=== PATIENT | male | born 1980 | race Caucasian/White ===

== ENCOUNTER 2018-01-20 15:57 | Emergency (ER) | payer OTHER ==
[2018-01-20] MEDS ORDERED: DEXAMETHASONE 10 MG/ML VIAL PO STA (16:33)
[2018-01-20] MEDS ORDERED: HYDROmorphone 1 MG/ML CARPUJECT IM STA (16:33)
[2018-01-20] MEDS ORDERED: ONDANSETRON ODT 4 MG TABLET TL STA (16:33)
--- NOTE | 2018-01-20 16:37 | ED Physician Documentation ---
PD HPI BACK PAIN - Stated complaint Stated Complaint: LOWER BK PX - Chief complaint Chief Complaint: Back Pain - History obtained from History obtained from: Patient, Friend - History of Present Illness Timing - onset: How many weeks ago (1) Timing - duration: Weeks (1) Timing - details: Gradual onset, Still present, Waxing and waning Location: Lower, Right Quality: Pain, Spasm, Sharp, Similar to prior episodes Associated symptoms: No: Fever, Weakness, Numbness, Incontinent of urine, Unable to urinate, Hematuria Improves with: Rest, Position, Meds Worsened by: Movement Contributing factors: Lifting, Twisting Similar symptoms before: Diagnosis (disc rupture) Recently seen: Not recently seen - Additional information Additional information: 37-year-old male medically discharged from the [employer] for lumbar disc disease has been living with a friend here on [facility] and he has been helping a friend remodel his home. He does state that he is up and down on a ladder, he carries a ladder and he does not note any specific injury that he has had. Symptoms started about a week ago. Today for about the past 6 hours his pain has escalated and he is not able to move around without help. Review of Systems Constitutional: denies: Fever Eyes: denies: Decreased vision Ears: denies: Ear pain Nose: denies: Congestion Throat: denies: Sore throat Respiratory: denies: Cough GI: denies: Abdominal Pain, Nausea, Vomiting : denies: Dysuria, Frequency Skin: denies: Rash Musculoskeletal: reports: Back pain. denies: Neck pain Neurologic: denies: Generalized weakness, Focal weakness, Numbness PD PAST MEDICAL HISTORY - Past Medical History Past Medical History: Yes HEENT: Chronic sinusitis Musculoskeletal: Chronic back pain Other Past Medical History: Childhood Luekemia - Past Surgical History Past Surgical History: Yes - Present Medications Home Medications: Ambulatory Orders Medication Instructions Recorded Confirmed Cyclobenzaprine [Flexeril] 10 mg PO TID PRN #20 tablet 01/20/18 HYDROcod/ACETAM 5/325 [[place] 5/325] 1 - 2 ea PO Q6H PRN #15 tablet 01/20/18 Methocarbamol 01/20/18 - Allergies Allergies/Adverse Reactions: Allergies Allergy/AdvReac Type Severity Reaction Status Date / Time Penicillins Allergy Unknown Verified 01/20/18 16:02 - Social History Does the pt smoke?: Yes Smoking Status: Current every day smoker Does the pt drink ETOH?: No Does the pt have substance abuse?: Yes Substance Use and Type: Marijuana - Immunizations Immunizations are current?: Yes PD ED PE NORMAL - Vitals Vital signs reviewed: Yes (normal ) - General General: Alert and oriented X 3, Well developed/nourished, Other (moves slowly with spams noted and appears to be in pain ) - HEENT HEENT: Atraumatic, PERRL - Neck Neck: Supple, no meningeal sign, No bony TTP - Respiratory Respiratory: No respiratory distress - Back Back: No CVA TTP, Other (There is severe lower lumbar pain and paraspinous muscle spasm. The lower lumbar spine is painful to palpate. 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, No sensory deficit, Normal speech, Other (There is mild weakness to the right great toe dorsiflexion ) Eye Opening: Spontaneous Motor: Obeys Commands Verbal: Oriented GCS Score: 15 - Psych Psych: Normal mood, Normal affect Results - Vitals Vitals: Vital Signs - 24 hr 01/20/18 15:59 Temperature 36.2 C L Heart Rate 78 Respiratory 20 Rate Blood Pressure 109/77 O2 Saturation 96 Oxygen O2 Source Room air PD MEDICAL DECISION MAKING - ED course Complexity details: reviewed results, re-evaluated patient, considered differential, d/w patient, d/w family ED course: 37-year-old male with a history of lumbar disc disease has exacerbation of his pain appears very stiff. He is administered dexamethasone Dilaudid and Zofran. - Sepsis Event Vital Signs: Vital Signs - 24 hr 01/20/18 15:59 Temperature 36.2 C L Heart Rate 78 Respiratory 20 Rate Blood Pressure 109/77 O2 Saturation 96 Oxygen O2 Source Room air Departure - Departure Disposition: 01 Home, Self Care Clinical Impression: Sciatica Qualifiers: Laterality: right Qualified Code(s): M54.31 - Sciatica, right side Condition: Stable Instructions: ED Sciatica Follow-Up: ESVIN Castro [Provider Group] Prescriptions: Cyclobenzaprine [Flexeril] 10 mg PO TID PRN #20 tablet PRN Reason: Spasms HYDROcod/ACETAM 5/325 [[place] 5/325] 1 - 2 ea PO Q6H PRN #15 tablet PRN Reason: Pain
[2018-01-20] MEDS ORDERED: CHERRY SYRUP 10 ML UDC PO ONE (16:38)
[2018-01-20 17:13] VITALS: BP 126/78
== END 2018-01-20 17:24 | disposition home or self-care (01) ==
LOC: ED 15:57
DX: M54.31 Sciatica, right side (principal); M51.86 Other intervertebral disc disorders, lumbar region; F17.200 Nicotine dependence, unspecified, uncomplicated
CPT/HCPCS: 96372; 99283; A9270; J1170; Q0162

== ENCOUNTER 2018-04-27 10:40 | Emergency (ER) | payer OTHER ==
[2018-04-27 10:58] VITALS: BP 147/88
--- NOTE | 2018-04-27 12:44 | ED Physician Documentation ---
PD HPI UPPER EXT INJURY - Stated complaint Stated Complaint: L ARM INJ - Chief complaint Chief Complaint: Ext Problem - History obtained from History obtained from: Patient - History of Present Illness Location: Left, Forearm Where injury occurred: Home Timing - onset: How many days ago (3) Timing - details: Still present Worsened by: Moving, Palpating Similar symptoms before: Has not had sx before - Additonal information Additional information: The patient is a 38-year-old male who presents with pain in his left forearm. The pain started 3 days ago when he injured it while working on his deck at home. He denies any other injuries. He presents now because of continued pain 3 days after the injury. He is right-hand dominant. Review of Systems Constitutional: denies: Fever Musculoskeletal: reports: Extremity pain (Left forearm.). denies: Neck pain, Back pain Neurologic: denies: Focal weakness, Numbness PD PAST MEDICAL HISTORY - Past Medical History Cardiovascular: None Endocrine/Autoimmune: None HEENT: Chronic sinusitis Musculoskeletal: Chronic back pain - Past Surgical History Past Surgical History: Yes - Present Medications Home Medications: Ambulatory Orders Medication Instructions Recorded Confirmed No Known Home Medications 04/27/18 04/27/18 - Allergies Allergies/Adverse Reactions: Allergies Allergy/AdvReac Type Severity Reaction Status Date / Time bee venom protein (honey bee) Allergy Unknown Verified 04/27/18 10:49 Penicillins Allergy Unknown Verified 01/20/18 16:02 - Social History Does the pt smoke?: Yes Smoking Status: Current every day smoker Does the pt drink ETOH?: No Does the pt have substance abuse?: Yes - Immunizations Immunizations are current?: Yes PD ED PE NORMAL - Vitals Vital signs reviewed: Yes (Initially hypertensive.) - General General: Alert and oriented X 3, Well developed/nourished - HEENT HEENT: Atraumatic - Neck Neck: No bony TTP - Cardiac Cardiac: RRR - Respiratory Respiratory: No respiratory distress, Clear bilaterally - Derm Derm: No rash - Extremities Extremities: Other (There is tenderness to palpation over the radial aspect of the left forearm. There is mild soft tissue swelling, without ecchymosis or break in the integument. Distal neurovascular is intact.) - Neuro Neuro: Alert and oriented X 3, No motor deficit, No sensory deficit Results - Vitals Vitals: Oxygen O2 Source Room air - Rads (name of study) Left forearm Radiology: Prelim report reviewed, EMP read contemporaneously, See rad report PD MEDICAL DECISION MAKING - ED course Complexity details: reviewed results, re-evaluated patient, considered differential, d/w patient ED course: The patient's presentation is most consistent with contusion to the left forearm. There is no evidence of fracture or dislocation on radiographic imaging. I discussed with him the expected course of injury, symptomatic treatment and outpatient follow-up, as well as potentially worrisome signs or symptoms that should prompt reevaluation in the emergency department. Departure - Departure Disposition: 01 Home, Self Care Clinical Impression: Contusion of left forearm Qualifiers: Encounter type: initial encounter Qualified Code(s): S50.12XA - Contusion of left forearm, initial encounter Condition: Stable Instructions: ED Contusion Upper Ext Follow-Up: ESVIN Castro [Provider Group] Comments: Apply ice pack to left forearm intermittently for the next 3 days. You can use ibuprofen, up to 800 mg 3 times daily for its anti-inflammatory effect. Let pain be your guide to activity level. Follow-up with your primary physician within 2 weeks. Call to schedule an appointment. Return to the emergency department if you develop increasing pain or swelling of the arm, or otherwise worsening symptoms. Discharge Date/Time: 04/27/18 12:57
--- NOTE | 2018-04-27 13:08 | XRAY Report ---
Reason: Limited ROM 2 pain Procedure Date: 04/27/2018 Accession Number: [id number] / [id number] Procedure: XR - Forearm LT CPT Code: FULL RESULT: EXAM: LEFT FOREARM RADIOGRAPHY EXAM DATE: 04/27/2018 11:04 AM. CLINICAL HISTORY: Limited ROM , pain. COMPARISON: None. TECHNIQUE: 2 views. FINDINGS: Bones: Normal. No fractures or bone lesions. Joints: Normal. No effusions or subluxations in the visualized wrist or elbow joints. Soft Tissues: Normal. No soft tissue swelling. IMPRESSION: Normal forearm radiography. [facility]
== END 2018-04-27 12:57 | disposition home or self-care (01) ==
LOC: ED 10:40
DX: S50.12XA Contusion of left forearm, initial encounter (principal); X50.0XXA Overexertion from strenuous movement or load, initial encounter; Y93.H3 Activity, building and construction; F17.200 Nicotine dependence, unspecified, uncomplicated; Y92.009 Unspecified place in unspecified non-institutional (private) residence as the place of occurrence of the external cause
CPT/HCPCS: 99282

== ENCOUNTER 2018-08-28 13:29 | Emergency (ER) | payer OTHER ==
--- NOTE | 2018-08-28 16:27 | ED Physician Documentation ---
History of Present Illness - Stated complaint Stated Complaint: HEAD LAC - Chief complaint Chief Complaint: Trauma Hd/Nk - History obtained from History obtained from: Patient - History of Present Illness Pain level max: 5 - Additonal information Additional information: Patient is a previously healthy 38-year-old male who at approximately noon today accidentally struck himself with a [employer] pounder while Working outside at his home. Patient reports that he did fall to the ground, but did not lose consciousness. Patient also denies vision loss, epistaxis, oral trauma. Patient denies neck pain, back pain, chest or abdominal pain, as well as any extremity pain. Patient does complain of feeling slightly dazed with mild headache, as well as laceration to top of head that has stopped bleeding. Tetanus current. Patient denies any particular worsening or improving factors to his symptoms. Review of Systems Eyes: denies: Loss of vision Ears: denies: Loss of hearing, Drainage/discharge Nose: denies: Epistaxis Throat: denies: Dental pain / toothache Skin: reports: Laceration (s) PD PAST MEDICAL HISTORY - Past Medical History Cardiovascular: None Endocrine/Autoimmune: None HEENT: Chronic sinusitis Musculoskeletal: Chronic back pain Other Past Medical History: back pain-chronic pain. - Past Surgical History Past Surgical History: Yes - Present Medications Home Medications: Ambulatory Orders Medication Instructions Recorded Confirmed No Known Home Medications 04/27/18 04/27/18 - Allergies Allergies/Adverse Reactions: Allergies Allergy/AdvReac Type Severity Reaction Status Date / Time bee venom protein (honey bee) Allergy Unknown Verified 08/28/18 14:06 Penicillins Allergy Unknown Verified 08/28/18 14:06 - Social History Does the pt smoke?: No Smoking Status: Former smoker Does the pt drink ETOH?: No Does the pt have substance abuse?: Yes - Immunizations Immunizations are current?: Yes - POLST Patient has POLST: No PD ED PE NORMAL - General General: Alert and oriented X 3, No acute distress, Well developed/nourished - HEENT HEENT: PERRL, EOMI, Moist mucous membranes, Pharynx benign, Dentition benign (Approximately 0.75-8cm laceration to top of head with clotted blood present, no active drainage or bleeding otherwise, no surrounding signs of infection. No other contusions noted. Remainder of head and face exam atraumatic with no facial bone tenderness or instability. Gross visual acuity intact.) - Cardiac Cardiac: RRR, No murmur - Respiratory Respiratory: No respiratory distress, Clear bilaterally - Abdomen Abdomen: Normal bowel sounds, Soft, Non tender, Non distended - Back Back: No spinal TTP - Derm Derm: Normal color, Warm and dry, No rash - Extremities Extremities: No deformity - Neuro Neuro: Alert and oriented X 3, No motor deficit, No sensory deficit - Psych Psych: Normal mood, Normal affect Results - Vitals Vitals: Vital Signs - 24 hr 08/28/18 08/28/18 14:01 14:06 Temperature 36.6 C Heart Rate 94 76 Respiratory 16 16 Rate Blood Pressure 117/78 120/67 O2 Saturation 97 100 Oxygen O2 Source Room air Procedures - Laceration (location) Scalp Length in cm: 0.8 Wound type: Linear Neurovascular status: Sensory intact, Motor intact, Vascular intact Anesthesia: LET Wound Preparation: Irrigated copiously NS Skin layer closure: Matthews (3) PD MEDICAL DECISION MAKING - ED course Complexity details: re-evaluated patient, considered differential, d/w patient ED course: Most concerning for uncomplicated laceration, head injury, concussion given mechanism of injury, complaints, and physical exam findings. I have low suspicion for skull or facial fracture, intracranial bleed, spinal or spinal cord injury, as well as chest, abdominal, lower extremity trauma, but considered. Tetanus Current. Patient's wound appropriate clean and closed in ED. Discussed likely concussive syndrome and supportive cares and precautions for such, as well as wound care, staple removal timing, appropriate follow-up and return precautions. Patient voiced understanding and is comfortable with discharge plan. Departure - Departure Disposition: 01 Home, Self Care Clinical Impression: Concussion Qualifiers: Encounter type: initial encounter Loss of consciousness presence/duration: without LOC Qualified Code(s): S06.0X0A - Concussion without loss of consciousness, initial encounter Scalp laceration Qualifiers: Encounter type: initial encounter Qualified Code(s): S01.01XA - Laceration without foreign body of scalp, initial encounter Condition: Good Instructions: ED Head Injury Closed, ED Concussion Follow-Up: your,doctor [Other] Comments: Please keep wound clean and dry, using running water and soap only. Be gentle when you shower shampoo. Do not need to apply anything topically. Please return to ED, urgent care, your physician for removal of karen in 10 days. Also be aware of concussion precautions provided and discussed. Return to ED sooner if experience any concerns otherwise follow-up with primary care physician next 2-3 days for reevaluation of concussion and approval to return to full activities.
[2018-08-28] MEDS ORDERED: LIDOCAINE-EPINEPH-TETRACAINE 3 ML SYRINGE TOP STA (17:25)
[2018-08-28 17:42] VITALS: BP 120/67
== END 2018-08-28 17:37 | disposition home or self-care (01) ==
LOC: ED 13:29
DX: S06.0X0A Concussion without loss of consciousness, initial encounter (principal); S01.01XA Laceration without foreign body of scalp, initial encounter; W22.8XXA Striking against or struck by other objects, initial encounter; Y92.007 Garden or yard of unspecified non-institutional (private) residence as the place of occurrence of the external cause; Z87.891 Personal history of nicotine dependence
CPT/HCPCS: 12001; 99283

== ENCOUNTER 2018-09-09 09:36 | Emergency (ER) | payer OTHER ==
--- NOTE | 2018-09-09 09:45 | ED Physician Documentation ---
PD HPI WOUND RECHECK - Stated complaint Stated Complaint: STAPLE REMOVAL - Histroy obtained from History obtained from: Patient - History of Present Illness Location: Scalp Timing - onset: How many weeks ago (1) Associated symptoms: No: Fever, Redness, Swelling, Drainage Recently seen: Emergency Dept (with karen in frontal scalp a week ago) Review of Systems Constitutional: denies: Fever GI: denies: Nausea, Vomiting PD PAST MEDICAL HISTORY - Past Medical History Cardiovascular: None Endocrine/Autoimmune: None HEENT: Chronic sinusitis Musculoskeletal: Chronic back pain - Past Surgical History Past Surgical History: Yes - Present Medications Home Medications: Ambulatory Orders Medication Instructions Recorded Confirmed No Known Home Medications 04/27/18 04/27/18 - Allergies Allergies/Adverse Reactions: Allergies Allergy/AdvReac Type Severity Reaction Status Date / Time bee venom protein (honey bee) Allergy Unknown Verified 09/09/18 09:50 Penicillins Allergy Unknown Verified 09/09/18 09:50 - Social History Does the pt smoke?: No Smoking Status: Former smoker Does the pt drink ETOH?: No Does the pt have substance abuse?: Yes - Immunizations Immunizations are current?: Yes - POLST Patient has POLST: No PD ED PE NORMAL - Vitals Vital signs reviewed: Yes - General General: Alert and oriented X 3, No acute distress, Well developed/nourished - HEENT HEENT: Other (frontal area with healing wound with some small scab. No signs of infection. [address] ) Results - Vitals Vitals: Vital Signs - 24 hr 09/09/18 09:46 Temperature 35.9 C L Heart Rate 68 Respiratory 16 Rate Blood Pressure 129/78 O2 Saturation 97 Oxygen O2 Source Room air Departure - Departure Disposition: 01 Home, Self Care Clinical Impression: Removal of staple Condition: Stable Record reviewed to determine appropriate education?: Yes Instructions: ED Stap Removal No Complication Comments: Continue cleaning as you have been. The wound looks okay at this time with a little bit of a hard scab. Use some ointment once or twice daily to soften it up and that will speed the healing. Discharge Date/Time: 09/09/18 10:57
[2018-09-09 09:49] VITALS: BP 129/78
== END 2018-09-09 10:57 | disposition home or self-care (01) ==
LOC: ED 09:36
DX: S01.01XD Laceration without foreign body of scalp, subsequent encounter (principal); X58.XXXD Exposure to other specified factors, subsequent encounter; Z48.02 Encounter for removal of sutures; Z87.891 Personal history of nicotine dependence
CPT/HCPCS: 99282

== ENCOUNTER 2020-04-11 20:19 | Emergency (ER) | payer OTHER ==
[2020-04-11 21:06] LABS: BASOPHILS # (AUTO) 0.1 10^3/uL (0.0-0.1); BASOPHILS % (AUTO) 0.6 %; EOSINOPHILS # (AUTO) 0.3 10^3/uL (0.0-0.7); EOSINOPHILS % (AUTO) 2.3 %; HGB - HEMOGLOBIN 14.5 g/dL (14.0-18.0); LYMPHOCYTES % (AUTO) 8.5 %; MEAN CORPUSCULAR HEMOGLOBIN 31.9 pg (27.0-31.0); MEAN CORPUSCULAR HGB CONC 36.5 g/dL (32.0-36.0); MEAN CORPUSCULAR VOLUME 87.4 fL (80.0-94.0); MEAN PLATELET VOLUME 8.8 fL (7.4-11.4); MONOCYTES # (AUTO) 1.1 10^3/uL (0.0-1.0); MONOCYTES % (AUTO) 9.7 %; NEUTROPHILS # (AUTO) 8.8 10^3/uL (1.5-6.6); NEUTROPHILS % (AUTO) 78.5 %; PLT - PLATELET COUNT 196 10^3/uL (130-450); RED BLOOD COUNT 4.54 10^6/uL (4.70-6.10); RED CELL DISTRIBUTION WIDTH 12.1 % (12.0-15.0); WHITE BLOOD COUNT 11.2 x10^3/uL (4.8-10.8)
[2020-04-11 21:18] LABS: ALBUMIN 3.8 g/dL (3.2-5.5); ALBUMIN/GLOBULIN RATIO 1.1 (1.0-2.2); BILIRUBIN,TOTAL 0.7 mg/dL (0.2-1.0); CALCIUM 8.8 mg/dL (8.5-10.3); CREATININE 0.9 mg/dL (0.6-1.2); TOTAL PROTEIN 7.4 g/dL (6.7-8.2)
--- NOTE | 2020-04-11 21:26 | XRAY Report ---
PROCEDURE: Chest 1 View X-Ray INDICATIONS: cough fever TECHNIQUE: One view of the chest was acquired. COMPARISON: None FINDINGS: Surgical changes and devices: None. Lungs and pleura: No pleural effusions or pneumothorax. Lungs are clear. Mediastinum: Mediastinal contours appear normal. Heart size is normal. Bones and chest wall: No suspicious bony lesions. Overlying soft tissues appear unremarkable. IMPRESSION: No acute cardiopulmonary disease process. Reviewed by: Sully Blas MD, PhD on 04/11/2020 9:25 PM PDT Approved by: Sully Blas MD, PhD on 04/11/2020 9:25 PM PDT Station ID: [id number]
[2020-04-11] MEDS ORDERED: ACETAMINOPHEN 325 MG TABLET PO STA (21:32)
--- NOTE | 2020-04-11 21:50 | ED Physician Documentation ---
History of Present Illness - Stated complaint Stated Complaint: FEVER,NAUSEA,MUSCLE SPASMS - Chief complaint Chief Complaint: Fever - History obtained from History obtained from: Patient - History of Present Illness Timing: Last night Pain level now: 9 Improved by: nothing Worsened by: worse when fever spikes with rigors - Treatment prior to arrival Treatment prior to arrival: has been taking tylenol , last dose approximately 3 PM - Additonal information Additional information: c/o episodic generalized rigor chills which he says are like "muscle spasms" all over his body, intermittent and painful. Tmax at home 100.7 (higher in ED triage). Mild, nonproductive cough. 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 denies: Dyspnea GI: reports: Reviewed and negative : denies: Dysuria, Frequency Skin: denies: Rash Musculoskeletal: reports: Reviewed and negative (pain is not specific to an area or extremity, although he has generalized aches and pains when he has the rigor chills) Neurologic: denies: Focal weakness, Numbness, Headache PD PAST MEDICAL HISTORY - Past Medical History Cardiovascular: None Respiratory: None Neuro: None Endocrine/Autoimmune: None GI: None : None HEENT: Chronic sinusitis Psych: Depression, Anxiety Musculoskeletal: Chronic back pain Derm: None - Past Surgical History Past Surgical History: Yes General: Other Ortho: Arthroscopic surgery - Present Medications Home Medications: Ambulatory Orders Medication Instructions Recorded Confirmed methocarbamoL [Methocarbamol] 500 BID 04/11/20 - Allergies Allergies/Adverse Reactions: Allergies Allergy/AdvReac Type Severity Reaction Status Date / Time bee venom protein (honey bee) Allergy Unknown Verified 09/09/18 09:50 Penicillins Allergy Unknown Verified 09/09/18 09:50 - Social History Does the pt smoke?: No Smoking Status: Never smoker Does the pt drink ETOH?: No Does the pt have substance abuse?: Yes Substance Use and Type: Marijuana - Immunizations Immunizations are current?: Yes - POLST Patient has POLST: No PD ED PE NORMAL - Vitals Vital signs reviewed: Yes - General General: Alert and oriented X 3, No acute distress, Well developed/nourished - HEENT HEENT: Moist mucous membranes - Neck Neck: Supple, no meningeal sign - Cardiac Cardiac: No murmur - Respiratory Respiratory: No respiratory distress, Clear bilaterally - Abdomen Abdomen: Soft, Non distended - Back Back: No CVA TTP, No spinal TTP - Derm Derm: No rash - Neuro Neuro: Alert and oriented X 3 Eye Opening: Spontaneous Motor: Obeys Commands Verbal: Oriented GCS Score: 15 PD ED PE EXPANDED - Cardiac Cardiac: Tachy, Regular Rhythm - Abdomen Abdomen: Tender to palpation, LLQ. No: Rebound, Guarding Results - Vitals Vitals: Vital Signs - 24 hr 04/11/20 04/11/20 04/11/20 20:20 20:38 21:08 Temperature 39.5 C H 39.5 C H 38.6 C H Heart Rate 104 H 98 88 Respiratory 20 24 22 Rate Blood Pressure 127/85 H 112/87 H 114/76 O2 Saturation 100 98 97 04/11/20 04/11/20 04/11/20 21:30 22:27 22:30 Temperature 38.6 C H 37.7 C H 37.7 C H Heart Rate 79 79 83 Respiratory 20 20 20 Rate Blood Pressure 121/77 127/75 127/75 O2 Saturation 96 97 97 04/11/20 04/11/20 04/12/20 23:00 23:30 00:00 Temperature 37.7 C H 37.4 C Heart Rate 76 75 74 Respiratory 20 18 18 Rate Blood Pressure 118/71 124/65 125/72 O2 Saturation 98 98 97 04/12/20 04/12/20 00:30 00:40 Temperature 37.7 C H 37.7 C H Heart Rate 74 74 Respiratory 18 18 Rate Blood Pressure 125/79 125/79 O2 Saturation 98 98 Oxygen O2 Source Room air Oxygen Flow Rate 0 - Labs Labs: Laboratory Tests 04/11/20 04/11/20 04/11/20 20:55 20:57 20:57 WBC 11.2 H RBC 4.54 L Hgb 14.5 Hct 39.7 L MCV 87.4 MCH 31.9 H MCHC 36.5 H RDW 12.1 Plt Count 196 MPV 8.8 Neut # (Auto) 8.8 H Lymph # (Auto) 1.0 L [place] # (Auto) 1.1 H Eos # (Auto) 0.3 Baso # (Auto) 0.1 Absolute Nucleated RBC 0.00 Nucleated RBC % 0.0 Sodium 139 Potassium 3.5 Chloride 106 Carbon Dioxide 23 Anion Gap 10.0 BUN 18 Creatinine 0.9 Estimated GFR (MDRD) 93 Glucose 108 H Lactic Acid Calcium 8.8 Total Bilirubin 0.7 AST 18 ALT 24 Alkaline Phosphatase 85 Total Protein 7.4 Albumin 3.8 Globulin 3.6 Albumin/Globulin Ratio 1.1 Urine Color Urine Clarity Urine pH Ur Specific [place] Urine Protein Urine Glucose (UA) Urine Ketones Urine Occult Blood Urine Nitrite Urine Bilirubin Urine Urobilinogen Ur Leukocyte Esterase Ur Microscopic Review Urine Culture Comments Nasal Adenovirus (PCR) NOT DETECTED Nasal B. parapertussis DNA (PCR) NOT DETECTED Nasal Coronavir 229E PCR NOT DETECTED Nasal Coronavir HKU1 PCR NOT DETECTED Nasal Coronavir NL63 PCR NOT DETECTED Nasal Coronavir OC43 PCR NOT DETECTED Nasal Enterovir/Rhinovir PCR NOT DETECTED Nasal Influenza B PCR NOT DETECTED Nasal Parainfluen 1 PCR NOT DETECTED Nasal Parainfluen 2 PCR NOT DETECTED Nasal Parainfluen 3 PCR NOT DETECTED Nasal Parainfluen 4 PCR NOT DETECTED Nasal RSV (PCR) NOT DETECTED Nasal B.pertussis DNA PCR NOT DETECTED Nasal C.pneumoniae (PCR) NOT DETECTED [place] Human Metapneumo PCR NOT DETECTED Nasal M.pneumoniae (PCR) NOT DETECTED Nasal SARS-CoV-2 (PCR) NOT DETECTED 04/11/20 04/11/20 20:57 22:30 WBC RBC Hgb Hct MCV MCH MCHC RDW Plt Count MPV Neut # (Auto) Lymph # (Auto) [place] # (Auto) Eos # (Auto) Baso # (Auto) Absolute Nucleated RBC Nucleated RBC % Sodium Potassium Chloride Carbon Dioxide Anion Gap BUN Creatinine Estimated GFR (MDRD) Glucose Lactic Acid 1.3 Calcium Total Bilirubin AST ALT Alkaline Phosphatase Total Protein Albumin Globulin Albumin/Globulin Ratio Urine Color YELLOW Urine Clarity CLEAR Urine pH 5.5 Ur Specific [place] 1.025 Urine Protein TRACE Urine Glucose (UA) NEGATIVE Urine Ketones TRACE Urine Occult Blood NEGATIVE Urine Nitrite NEGATIVE Urine Bilirubin NEGATIVE Urine Urobilinogen 2 H Ur Leukocyte Esterase NEGATIVE Ur Microscopic Review NOT INDICATED Urine Culture Comments NOT INDICATED Nasal Adenovirus (PCR) Nasal B. parapertussis DNA (PCR) Nasal Coronavir 229E PCR Nasal Coronavir HKU1 PCR Nasal Coronavir NL63 PCR Nasal Coronavir OC43 PCR Nasal Enterovir/Rhinovir PCR Nasal Influenza B PCR Nasal Parainfluen 1 PCR Nasal Parainfluen 2 PCR Nasal Parainfluen 3 PCR Nasal Parainfluen 4 PCR Nasal RSV (PCR) Nasal B.pertussis DNA PCR Nasal C.pneumoniae (PCR) [place] Human Metapneumo PCR Nasal M.pneumoniae (PCR) Nasal SARS-CoV-2 (PCR) - Rads (name of study) CT A/P w/ IV contrast Radiology: Prelim report reviewed, See rad report PD MEDICAL DECISION MAKING - ED course Complexity details: reviewed results, re-evaluated patient, considered differential, d/w patient ED course: On reevaluation after tests resulted and IV fluids, PO tyleno, patient is in NAD , reports feeling better. Unremarkable w/u despite high fevers. Incidental CT findings d/w patient and he was advised of possibility of false negative results (such as influenza, covid). advised to return if worse, f/u with PMD next available appointment Departure - Departure Disposition: 01 Home, Self Care Clinical Impression: Fever Condition: Good Instructions: ED Fever Unconf Cause Comments: As we discussed, although there are no findings on your CT scan that are emergent or related to the fever, you have a large gallstone, a small right renal cyst, and an unusual amount of calcification in your prostate. These are incidental findings and can be discussed with your doctor regarding whether further testing is needed. Discharge Date/Time: 04/12/20 00:40
[2020-04-11 22:08] LABS: C. PNEUMONIAE- RESP PCR PANEL NOT DETECTED
[2020-04-11] MEDS ORDERED: SODIUM CHLORIDE 0.9% 1,000 ML IV STA (22:17)
[2020-04-11 22:38] LABS: BILIRUBIN,URINE NEGATIVE (NEGATIVE); GLUCOSE, URINE (UA) NEGATIVE (NEGATIVE); KETONES,URINE (UA) TRACE mg/dL (NEGATIVE); LEUKOCYTE ESTERASE, URINE NEGATIVE (NEGATIVE); NITRITE,URINE NEGATIVE (NEGATIVE); OCCULT BLOOD,URINE NEGATIVE (NEGATIVE); PH,URINE 5.5 PH (5.0-7.5); PROTEIN,URINE TRACE mg/dL (NEGATIVE); UROBILINOGEN,URINE 2 E.U./dL (NORMAL)
[2020-04-11 22:41] LABS: CLARITY,URINE CLEAR (CLEAR)
[2020-04-11] MEDS ORDERED: IOVERSOL 320 100 ML VIAL IVP ONE ×2 (23:02→23:36)
[2020-04-12 00:46] VITALS: BP 125/79
--- NOTE | 2020-04-12 08:31 | CT Report ---
PROCEDURE: Abdomen/Pelvis W INDICATIONS: LLQ tenderness, fever CONTRAST: IV CONTRAST: Optiray 320 ml: 100 PO CONTRAST: *NO PO CONTRAST TECHNIQUE: After the administration of nonionic IV contrast, 5 mm thick sections acquired from the diaphragms to the symphysis. 5 mm thick coronal and sagittal reformats were acquired. For radiation dose reducti on, the following was used: automated exposure control, adjustment of mA and/or kV according to chasity ent size. COMPARISON: None. FINDINGS: Image quality: Excellent. ABDOMEN: Lung bases: Lung bases are clear. Heart size is normal. Solid organs: Liver and spleen are normal in size and enhancement. Gallbladder demonstrates a galls tone within its lumen that measures up to 2.47 m, as on series 3 image 26. Apparent mild gallbladder wall thickening is seen. Biliary system is non dilated. Pancreas enhances normally. No adrenal nodu les. Kidneys demonstrate normal size and enhancement, without hydronephrosis. Peritoneum and bowel: In this patient with this given history, scrutiny is given to the sigmoid colo n and the left lower quadrant. The sigmoid colon is normal. The left lower quadrant inflammatory cuellar ges are seen. Bowel loops demonstrate normal wall thickness and caliber. No free fluid or air. A normal appendix is incidentally noted. Nodes and vessels: No retroperitoneal or mesenteric adenopathy by size criteria. Aorta and inferior vena cava are normal in size. Miscellaneous: No ventral hernias. PELVIS: Genitourinary: Bladder wall thickness is normal. Miscellaneous: No inguinal hernias or adenopathy. Bones: No suspicious bony lesions. No vertebral body compression fractures. Focal L5-S1 degenerativ e change is seen. Milder degenerative changes are seen elsewhere. IMPRESSION: No cause of left lower quadrant pain can be seen. Gallstone with apparent mild gallbladder wall thickening. If it would be helpful for clinical managem ent decision making, please consider a dedicated right upper quadrant ultrasound. Incidental note is made of: Normal appendix Focal L5-S1 degenerative change Note: No significant discrepancy from the preliminary report. Reviewed by: Marcelo Lorenzo MD on 04/12/2020 7:30 AM [facility] Approved by: Marcelo Lorenzo MD on 04/12/2020 7:30 AM [facility] Station ID: [id number]
== END 2020-04-12 00:40 | disposition home or self-care (01) ==
LOC: ED 20:19
DX: R50.9 Fever, unspecified (principal); Z20.828 Contact with and (suspected) exposure to other viral communicable diseases
CPT/HCPCS: 0202U; 36415; 71045; 74177; 80053; 81003; 83605; 85025; 87040; 96360; 99284; A9270; Q9967; 81001; 87086

== ENCOUNTER 2022-05-21 08:18 | Emergency (ER) | payer OTHER ==
[2022-05-21] MEDS ORDERED: ONDANSETRON 4 MG/2 ML VIAL IVP STA (08:40)
[2022-05-21] MEDS ORDERED: KETOROLAC 30 MG/ML VIAL IVP STA (08:40)
[2022-05-21] MEDS ORDERED: DEXAMETHASONE 10 MG/ML VIAL IVP STA ×2 (08:40→13:21)
[2022-05-21] MEDS ORDERED: HYDROmorphone 1 MG/ML CARPUJECT IVP STA ×3 (08:40→10:36)
[2022-05-21] MEDS ORDERED: SODIUM CHLORIDE 0.9% 1,000 ML IV STA (08:40)
[2022-05-21] MEDS ORDERED: KETAMINE 500 MG/10 ML VIAL IVP STA (09:26)
[2022-05-21] MEDS ORDERED: KETAMINE 40 MG in SODIUM CHLORIDE 0.9% 100ML 100 ML IV STA (09:29)
--- NOTE | 2022-05-21 10:21 | ED Physician Documentation ---
PD HPI BACK PAIN - Stated complaint Stated Complaint: BACK PX - Chief complaint Chief Complaint: Back Pain - History obtained from History obtained from: Patient, Friend - History of Present Illness Timing - onset: How many days ago (2) Timing - duration: Days (2) Timing - details: Gradual onset, Still present Pain level max: >10 Pain level now: >10 Location: Lower, Right Quality: Pain, Spasm, Sharp Associated symptoms: Other. No: Fever, Weakness, Numbness, Incontinent of urine, Unable to urinate, Hematuria, Incontinent of stool Improves with: Rest Worsened by: Movement, Palpation Contributing factors: Other (has hx of sciatica does not recall specific event to trigger exacerbation) Similar symptoms before: Diagnosis (Sciatica) Recently seen: Not recently seen - Additional information Additional information: 42-year-old Enrique Perry has had a problem with his sciatica for years. He recently has begun to have more issues and he has sought care at the [facility] and is looking to get MRI when he gets approval. He has not been on narcotic pain reliever on a pain management program. He has been using ibuprofen or Tylenol for pain management. Today he is unable to ambulate without the use of his cane and he has severe pain radiating down the right leg. He has some weakness to dorsiflexion of the toe. He is writhing in pain and is a poor historian secondary to this distraction. Review of Systems Constitutional: denies: Fever Eyes: denies: Decreased vision Ears: denies: Ear pain Nose: denies: Rhinorrhea / runny nose, Congestion Throat: denies: Sore throat Cardiac: denies: Chest pain / pressure, Palpitations Respiratory: denies: Dyspnea, Cough GI: denies: Abdominal Pain, Nausea, Vomiting, Constipation, Diarrhea : denies: Dysuria, Frequency Skin: denies: Rash Musculoskeletal: reports: Back pain, Extremity pain. denies: Neck pain Neurologic: reports: Focal weakness (right foot dorsiflexion), Numbness. denies: Generalized weakness, Difficulty speaking, Altered mental status, Headache, Head injury, LOC PD PAST MEDICAL HISTORY - Past Medical History Cardiovascular: None Respiratory: None Neuro: None Endocrine/Autoimmune: None GI: None : None HEENT: Chronic sinusitis Psych: Depression, Anxiety Musculoskeletal: Chronic back pain Derm: None - Past Surgical History Past Surgical History: Yes General: Other Ortho: Arthroscopic surgery - Present Medications Home Medications: Ambulatory Orders Medication Instructions Recorded Confirmed methocarbamoL [Methocarbamol] 500 BID 04/11/20 Cyclobenzaprine [Flexeril] 10 mg PO TID PRN #20 tablet 05/21/22 HYDROcod/ACETAM 5/325 [[place] 5/325] 1 - 2 tablet PO Q6H PRN #14 tablet 05/21/22 - Allergies Allergies/Adverse Reactions: Allergies Allergy/AdvReac Type Severity Reaction Status Date / Time bee venom protein (honey bee) Allergy Unknown Verified 09/09/18 09:50 Penicillins Allergy Unknown Verified 09/09/18 09:50 - Social History Does the pt smoke?: No Smoking Status: Never smoker Does the pt drink ETOH?: No Does the pt have substance abuse?: Yes - Immunizations Immunizations are current?: Yes - POLST Patient has POLST: No PD ED PE NORMAL - Vitals Vital signs reviewed: Yes (hypertensive ) - General General: Alert and oriented X 3, Well developed/nourished, Other (crying out in pain appears uncomfortable and tense laying with the right leg extended. ) - HEENT HEENT: Atraumatic, PERRL, EOMI - Neck Neck: Supple, no meningeal sign, No bony TTP - Cardiac Cardiac: RRR, No murmur - Respiratory Respiratory: No respiratory distress - Abdomen Abdomen: Soft, Non tender - Back Back: No CVA TTP, No spinal TTP - Derm Derm: Normal color, Warm and dry, No rash - Extremities Extremities: No deformity, No edema - Neuro Neuro: Alert and oriented X 3, lever miller 2-12 intact, Normal speech Eye Opening: Spontaneous Motor: Obeys Commands Verbal: Oriented GCS Score: 15 - Psych Psych: Other (mood is defeated and the affect is labile ) Results - Vitals Vitals: Vital Signs - 24 hr 05/21/22 05/21/22 05/21/22 08:25 09:00 10:00 Temperature 96.7 C H Heart Rate 62 65 75 Respiratory 20 25 H 22 Rate Blood Pressure 131/80 H 143/96 H 135/79 H O2 Saturation 99 99 98 If not protocol : Oxygen Flow, liters/minute 05/21/22 05/21/22 05/21/22 10:05 10:10 10:15 Temperature Heart Rate 65 70 62 Respiratory 18 12 12 Rate Blood Pressure 142/81 H 134/83 H 133/84 H O2 Saturation 97 97 96 If not protocol : Oxygen Flow, liters/minute 05/21/22 05/21/22 05/21/22 10:25 10:36 10:40 Temperature Heart Rate 60 80 60 Respiratory 10 L 17 12 Rate Blood Pressure 132/83 H 142/76 H 132/84 H O2 Saturation 98 99 98 If not protocol : Oxygen Flow, liters/minute 05/21/22 05/21/22 05/21/22 10:55 11:20 11:25 Temperature Heart Rate 60 50 L 61 Respiratory 17 10 L 17 Rate Blood Pressure 112/53 L 78/42 L 124/75 O2 Saturation 99 97 78 L If not protocol : Oxygen Flow, liters/minute 05/21/22 05/21/22 11:37 13:00 Temperature Heart Rate 63 59 L Respiratory 17 10 L Rate Blood Pressure 126/64 119/63 O2 Saturation 98 99 If not protocol 2 2 : Oxygen Flow, liters/minute Oxygen O2 Source Nasal cannula Oxygen Flow Rate 2 - Rads (name of study) lumbar MRI Radiology: Prelim report reviewed (Impression: 1. L5-S1 disc extrusion, causing neural compression and deviation as described above. Recommend correlation with clinical symptoms to ascertain relevance of this finding.), EMP read indepedently, See rad report PD MEDICAL DECISION MAKING - ED course Complexity details: reviewed old records, reviewed results, re-evaluated patient, considered differential, d/w patient, d/w family ED course: 42-year-old male presents to the emergency department with unrelieved sciatica with severe pain. We had a difficult time controlling the patient's pain. An IV was established in the field and the patient had been administered 150 mcg of fentanyl prior to arrival. This appeared to have little effect on the patient's pain. Here in the emergency department he was initially administered a elliott gram of Dilaudid 10 mg of dexamethasone and 4 mg of Zofran and this again did not seem to help much. He was given a second dose of Dilaudid, a dose Toradol. He had little relief with this and he was given ketamine for pain control with a 35mg bolus and a 40mg infusion over an hour. This had some effect but did not resolve the pain enough to get adequate history. He as given IV morphine with transient improvement and finally a 2mg dose of dialudid and 2mg of ativan. This appeared to help somewhat and the patient was able to tolerate the MRI. The MRI did show disc displacement with impingement on L5/S1 consistent with the symptoms on presentation. Departure - Departure Disposition: 01 Home, Self Care Clinical Impression: Sciatica Qualifiers: Laterality: right Qualified Code(s): M54.31 - Sciatica, right side Instructions: ED Sciatica Follow-Up: Tay Wade MD [Physician No Access] - ARLEN RIVERS DO [Physician No Access] - Prescriptions: Cyclobenzaprine [Flexeril] 10 mg PO TID PRN #20 tablet PRN Reason: Spasms HYDROcod/ACETAM 5/325 [[place] 5/325] 1 - 2 tablet PO Q6H PRN #14 tablet PRN Reason: Pain Comments: Enrique, today it looks like you have severe sciatica and we are happy to hear that there is some improvement in your pain. There is still weakness and numbness in your right foot and this is expected to continue to improve over the next 12 hours. If you have worsening of your symptoms visit in emergency room capable of providing neurosurgical consultation such as [facility] in [place] or [facility]. Under the best of circumstances your symptoms will continue to improve and physical therapy is indicated. [facility] Pain medication and muscle relaxant has been E scrib[facility] to [facility] in [place].
[2022-05-21] MEDS ORDERED: MORPHINE 10 MG/ML VIAL IVP STA (10:51)
[2022-05-21] MEDS ORDERED: LORazepam 2 MG/ML VIAL IVP STA (11:15)
[2022-05-21] MEDS ORDERED: GADOBUTROL 10 MMOL/10 ML VIAL ONE (11:36)
[2022-05-21] MEDS ORDERED: GADOBUTROL 10 MMOL/10 ML VIAL IVP ONE (12:19)
--- NOTE | 2022-05-21 13:04 | MRI Report ---
PROCEDURE: LUMBAR SPINE W/WO INDICATIONS: severe sciatica not responding to treatment CONTRAST: Intravenous gadolinium TECHNIQUE: Noncontrast sagittal T1 spin echo and T2 fast spin echo, sagittal STIR, axial T1 and T2 fast spin ech o through the lumbar spine. In cases with scoliosis, additional coronal T2 fast spin echo may be per formed. After the administration of contrast, sagittal and axial T1 spin echo with fat saturation th rough the lumbar spine. COMPARISON: CT dated 04/11/2020. FINDINGS: Image quality: Excellent. Alignment and curvature: 5 lumbar type vertebral bodies are present by CT there is loss of normal lum bar lordosis. 2 mm of retrolisthesis of L1 on L2 and L2 on L3. Marrow: Marrow is of normal overall signal. No acute vertebral body compression fractures. No susp icious marrow enhancement. Mild reactive signal within the end but adjacent to the L5-S1 interverteb ral disc. Spinal cord: Conus medullaris terminates at the lower L1 level. Visualized spinal cord demonstrates normal signal, without suspicious enhancement. Paraspinous soft tissues: No paravertebral masses or abnormal enhancement. T12-L1: Normal in appearance. L1-L2: Mild disc desiccation and diffuse disc bulge. Mild canal stenosis. No foraminal stenosis. L2-L3: Normal in appearance. L3-L4: Normal in appearance. L4-L5: Normal in appearance. L5-S1: Mild disc height loss and desiccation. Mild diffuse disc bulge with superimposed right parac entral disc extrusion which extends into the right lateral recess and neural foramen. Mild bilateral facet hypertrophy. Mild canal stenosis. Severe right and mild left foraminal stenosis. Compression of the right L5 nerve root within the neural foramen. Mild posterior deviation of the right S1 nerve ro ot within the lateral recess. IMPRESSION: 1. L5-S1 disc extrusion, causing neural compression and deviation as described above. Recommend corre lation with clinical symptoms to ascertain relevance of this finding. Reviewed by: Aaron Hylton MD on 05/21/2022 12:02 PM [facility] Approved by: Aaron Hylton MD on 05/21/2022 12:02 PM [facility] Station ID: [id number]
[2022-05-21 13:05] VITALS: BP 119/63
== END 2022-05-21 15:00 | disposition home or self-care (01) ==
LOC: EDUNIT# → ED 08:18
DX: M54.31 Sciatica, right side (principal)
CPT/HCPCS: 72158; 96361; 96365; 96375; 96376; 99284; 99285; A9585; J1170; J2060

== ENCOUNTER → 2022-05-21 | Outpatient (CLI) | payer OTHER | END | disposition critical access hospital (66) | LOC: EMS 08:08 | DX: M54.50 Low back pain, unspecified (principal); M79.604 Pain in right leg | CPT/HCPCS: A0425; A0429 ==